=== PATIENT | female | born 1955 | race Caucasian/White ===

== ENCOUNTER 2021-10-03 09:59 | Inpatient (IN) | payer BC, OTHER ==
[2021-10-03] MEDS ORDERED: MORPHINE 4 MG/ML SYR ONE ×2 (10:42→16:06)
[2021-10-03 10:57] LABS: Absolute Lymphocytes (CBC) 1.1 K/uL (0.7-4.9); Hematocrit 31.3 % (36.0-45.0); Lymphocytes % 9.8 % (15.3-44.8); MPV 7.1 fL (7.6-11.3)
[2021-10-03 11:10] LABS: Potassium 3.6 mmol/L (3.5-5.1)
--- NOTE | 2021-10-03 11:30 | RAD REPORT ---
EXAM DESCRIPTION: CT - Head C Spine Cap Thompson Castro - 10/03/2021 11:16 am CLINICAL HISTORY: Trauma, head and neck injury. Chest, abdomen and pelvis pain. fall COMPARISON: No comparisons TECHNIQUE: CT head without contrast. CT cervical spine without contrast with coronal and sagittal reformatted images. CT chest, abdomen and pelvis with coronal and sagittal reformatted images of the spine. All CT scans are performed using dose optimization technique as appropriate and may include automated exposure control or mA/KV adjustment according to patient size. FINDINGS: CT HEAD WITHOUT CONTRAST: No intracranial hemorrhage, hydrocephalus or extra-axial fluid collection. No acute large vascular te rritory infarct. The paranasal sinuses and mastoids are clear. The calvarium is intact. CT CERVICAL SPINE WITHOUT CONTRAST: No fracture or subluxation. Status post C3 through C7 ACDF. No hardware complications. Interbody senthil ts are present. The prevertebral soft tissues are normal in thickness. CT CHEST, ABDOMEN, PELVIS: Thorax: Chest Wall: No abnormal mass Lungs: No acute abnormality. Pleura: No effusions or pneumothorax. [place]/Mediastinum: No lymphadenopathy. Aorta/Pulmonary Arteries: Unremarkable Heart: Normal size. Aortic root calcifications. Abdomen/Pelvis: Liver: Several liver lesions noted which have overall benign imaging features. Biliary: No biliary ductal dilatation. Stomach: No significant focal abnormality. Duodenum: No significant focal abnormality. Pancreas: No significant abnormality. Spleen: No significant abnormality. Adrenal: No suspicious lesions. Kidney/ureter: No hydronephrosis. No renal calculi. Retroperitoneum: No retroperitoneal adenopathy. Vascular: No aneurysm. Bowel: No significant focal abnormality. Peritoneum: No ascites or free air. Bladder: Grossly unremarkable. Reproductive: No adnexal masses. Bones: Grade 2 anterolisthesis of L5 on S1. Compression fractures are present at L1, L2, and L4. Thes e are favored chronic. There is slight bony retropulsion at L1. Comminuted right intertrochanteric hi p fracture. Remote left obturator ring fracture. Other: n/a IMPRESSION: 1. No acute intracranial abnormality. 2. No acute fracture or traumatic malalignment of the cervical spine. 3. Comminuted right intertrochanteric hip fracture. No dislocation. Lumbar compression fractures are favored chronic.
--- NOTE | 2021-10-03 11:49 | RAD REPORT ---
EXAM DESCRIPTION: RAD - Chest Single View - 10/03/2021 11:43 am CLINICAL HISTORY: pre-op COMPARISON: No comparisons FINDINGS: Lines: None. Lungs: No evidence of edema or pneumonia. Pleural: No significant pleural effusions or pneumothorax. Cardiac: The heart size is within normal limits. Bones: No acute fractures. ACDF in the cervical spine. Other: IMPRESSION: No acute cardiopulmonary disease.
--- NOTE | 2021-10-03 11:49 | RAD REPORT ---
EXAM DESCRIPTION: RAD - Pelvis - 10/03/2021 11:43 am CLINICAL HISTORY: fall COMPARISON: Head C Spine Cap W Con dated 10/03/2021 FINDINGS/IMPRESSION: Displaced comminuted right intertrochanteric hip fracture. Superolateral displa cement is noted. No dislocation. Remote left obturator ring fracture. Contrast present within the manuel dder.
--- NOTE | 2021-10-03 11:50 | RAD REPORT ---
EXAM DESCRIPTION: RAD - Hip Right 2 View - 10/03/2021 11:43 am CLINICAL HISTORY: fall COMPARISON: No comparisons FINDINGS/IMPRESSION: Right-sided intertrochanteric hip fracture. No dislocation. Superior and latera l displacement of the distal fragment.
[2021-10-03] MEDS ORDERED: HYDROMORPHONE HCL 1 MG/ML INJ ONE (11:53)
--- NOTE | 2021-10-03 12:19 | ER ---
Nurse's Notes [facility] Name: Amara Sherwood Age: 65 yrs Sex: Female : 1955 Arrival Date: 10/03/2021 Time: 10:08 Bed 4 Private MD: Diagnosis: Displaced intertrochanteric fracture of right femur;Fall on same level, unspecified Presentation: 10/03 10:08 Chief complaint: Patient states: lost balance and fell onto right hip last night. Pt aa5 c/o pain to right hip. Denies head injury, denies LOC. Care prior to arrival: None. Mechanism of Injury: Fall from standing position. Trauma event details: Injury occurred in the [facility], Injury occurred: [facility], pt reports she is on vacation and lives in [place], [place]. Injury occurred: October 02, 2021. 10:08 Acuity: ADRIAN 3 aa5 10:08 Method Of Arrival: EMS: [facility] aa5 10:08 Coronavirus screen: At this time, the client does not indicate any symptoms associated aa5 with coronavirus-19. Ebola Screen: No symptoms or risks identified at this time. Initial Sepsis Screen: Does the patient meet any 2 criteria? No. Patient's initial sepsis screen is negative. Does the patient have a suspected source of infection? No. Patient's initial sepsis screen is negative. Risk Assessment: Do you want to hurt yourself or someone else? Patient reports no desire to harm self or others. Onset of symptoms was September 2021. Trauma Activation: Not Applicable Physician: ED Physician; Name: ; Notified At: ; Arrived At: Physician: General Surgeon; Name: ; Notified At: ; Arrived At: Physician: Radiology; Name: ; Notified At: ; Arrived At: Physician: Respiratory; Name: ; Notified At: ; Arrived At: Physician: Lab; Name: ; Notified At: ; Arrived At: 10:08 per PA aa5 Historical: - Allergies: 10:08 No Known Allergies; aa5 - Home Meds: 10:08 metoprolol succinate 25 mg oral CSpX once daily [Active]; hydrochlorothiazide 25 mg aa5 Oral tab once daily [Active]; fluoxetine 20 mg Oral cap once daily for mood swings [Active]; hydroxyzine HCl 10 mg Oral tab PRN [Active]; Vitamin B12 [Active]; Calcium/Vitamin D3 [Active]; Focus Factor [Active]; Liver Cleanse with milk thistle extract [Active]; - PMHx: 10:08 Hypertensive disorder; Anxiety; aa5 - PSHx: 10:08 cervical disc fusion; aa5 - Immunization history: Last tetanus immunization: unknown. Screenin:40 Abuse screen: Denies threats or abuse. Nutritional screening: No deficits noted. aa5 Tuberculosis screening: No symptoms or risk factors identified. Fall Risk Fall in past 12 months (25 points). IV access (20 points). Total Hudson Fall Scale indicates High Risk Score (45 or more points). Fall prevention measures have been instituted. Side Rails Up X 2 Placed Close to Nursing Station. Primary Survey: 10:08 NO uncontrolled hemorrhage observed. A: The client is awake and alert. The airway is aa5 patent. Breathing/Chest: Spontaneous respiratory effort, equal unlabored respirations, breath sounds clear bilaterally, regular pattern, symmetrical chest rise and fall. Circulation: No external hemorrhage present. Regular and strong central pulse, skin warm/dry/normal color. Disability Client is alert. Exposure/Environment: There is no evidence of uncontrolled external bleeding. A warming method has been applied: A warm blanket has been provided to the patient. 10:20 Reassessment Alertness and Airway: Awake and alert. The airway is patent. Breathing: aa5 Spontaneous respiratory effort, equal unlabored respirations, breath sounds clear bilaterally, regular pattern with symmetrical chest rise and fall. Circulation: No external hemorrhage noted. Regular and strong central pulse, skin warm/dry/normal color. Disability: Alert. Assessment: 10:08 General: Appears uncomfortable, Behavior is calm, cooperative. Pain: Complains of pain aa5 in right hip Pain currently is 8 out of 10 on a pain scale. Quality of pain is described as sharp, shooting, Pain began last night Is continuous, Aggravated by repositioning, Unable to bear weight. Neuro: Level of Consciousness is awake, alert, obeys commands, Oriented to person, place, time, situation. Cardiovascular: Heart tones S1 S2 present Pulses are 3+ in right dorsalis pedis artery Rhythm is regular. Respiratory: Airway is patent Respiratory effort is even, unlabored, Respiratory pattern is regular, symmetrical. GI: No signs and/or symptoms were reported involving the gastrointestinal system. : No signs and/or symptoms were reported regarding the genitourinary system. EENT: No signs and/or symptoms were reported regarding the EENT system. Derm: Skin is pink, warm \T\ dry. Musculoskeletal: Reports pain in right hip slight shortening of right leg noted, right leg slightly rotated. 10:39 Reassessment: awaiting radiology. aa5 10:45 Reassessment: Pt to CT via stretcher . aa5 11:35 Reassessment: Patient is alert, oriented x 3, equal unlabored respirations, skin aa5 warm/dry/pink. Pain: Pain currently is 7 out of 10 on a pain scale. 11:35 Reassessment: Pt requesting pain medication, PA was notified. . aa5 12:26 Reassessment: Pt actively vomiting, PA was notified and Zofran ordered. . aa5 13:35 Reassessment: Patient is alert, oriented x 3, equal unlabored respirations, skin aa5 warm/dry/pink. Patient states feeling better. Pain: Pain currently is 5 out of 10 on a pain scale. 14:35 Reassessment: Pt sleeping, O2 noted to be 88% RA when pt is asleep, when awake 97% RA aa5 O2 sat noted. Pt now awake and alert, O2 via NC at 3 L. . 14:35 Respiratory: Airway is patent Respiratory effort is even, relaxed, Respiratory pattern aa5 is regular, symmetrical. Derm: Skin is pink, warm \T\ dry. 15:20 Reassessment: Pt sleeping, relaxed respirations, skin is pink/warm/dry. Pt easy to aa5 awaken to verbal stimuli, rates pain 5/10 on a pain scale. . 16:10 Reassessment: Patient is alert, oriented x 3, equal unlabored respirations, skin aa5 warm/dry/pink. Reassessment: Pt requesting pain medication, PA was notified. . Pain: Pain currently is 7 out of 10 on a pain scale. 16:20 Reassessment: Patient is alert, oriented x 3, equal unlabored respirations, skin aa5 warm/dry/pink. Patient states feeling better. 16:20 Pain: Pain currently is 4 out of 10 on a pain scale. aa5 Vital Signs: 10:08 BP 140 / 93; Pulse 76; Resp 18 S; Temp 98.5(O); Pulse Ox 100% on R/A; Weight 64.41 kg aa5 (R); Height 5 ft. 2 in. (157.48 cm) (R); 10:35 BP 146 / 72; Pulse 71; Resp 18 S; Pulse Ox 96% on R/A; aa5 11:35 BP 155 / 100; Pulse 76; Resp 16 S; Pulse Ox 95% on R/A; aa5 12:35 BP 151 / 61; Pulse 76; Resp 18 S; Pulse Ox 97% on R/A; aa5 13:35 BP 149 / 62; Pulse 74; Resp 14 S; Temp 98.0(TE); Pulse Ox 96% on R/A; aa5 14:35 BP 122 / 60; Pulse 72; Resp 14 S; Pulse Ox 88% on R/A; aa5 14:36 Pulse Ox 98% on 3 lpm NC; aa5 15:20 BP 114 / 49; Pulse 69; Resp 14 S; Pulse Ox 95% on 2 lpm NC; aa5 16:20 BP 106 / 55; Pulse 68; Resp 14 S; Temp 98.3(TE); Pulse Ox 97% on 2 lpm NC; Pain 4/10; aa5 10:08 Body Mass Index 25.97 (64.41 kg, 157.48 cm) aa5 [place] Coma Score: 10:08 Eye Response: spontaneous(4). Verbal Response: oriented(5). Motor Response: obeys aa5 commands(6). Total: 15. 10:35 Eye Response: spontaneous(4). Verbal Response: oriented(5). Motor Response: obeys aa5 commands(6). Total: 15. 11:35 Eye Response: spontaneous(4). Verbal Response: oriented(5). Motor Response: obeys aa5 commands(6). Total: 15. 12:35 Eye Response: spontaneous(4). Verbal Response: oriented(5). Motor Response: obeys aa5 commands(6). Total: 15. 13:35 Eye Response: spontaneous(4). Verbal Response: oriented(5). Motor Response: obeys aa5 commands(6). Total: 15. 14:35 Eye Response: spontaneous(4). Verbal Response: oriented(5). Motor Response: obeys aa5 commands(6). Total: 15. 15:20 Eye Response: spontaneous(4). Verbal Response: oriented(5). Motor Response: obeys aa5 commands(6). Total: 15. 16:20 Eye Response: spontaneous(4). Verbal Response: oriented(5). Motor Response: obeys aa5 commands(6). Total: 15. Trauma Score (Adult): 10:08 Eye Response: spontaneous(1); Verbal Response: oriented(1); Motor Response: obeys aa5 commands(2); Systolic BP: > 89 mm Hg(4); Respiratory Rate: 10 to 29 per min(4); López Score: 15; Trauma Score: 12 10:35 Eye Response: spontaneous(1); Verbal Response: oriented(1); Motor Response: obeys aa5 commands(2); Systolic BP: > 89 mm Hg(4); Respiratory Rate: 10 to 29 per min(4); [place] Score: 15; Trauma Score: 12 11:35 Eye Response: spontaneous(1); Verbal Response: oriented(1); Motor Response: obeys aa5 commands(2); Systolic BP: > 89 mm Hg(4); Respiratory Rate: 10 to 29 per min(4); [place] Score: 15; Trauma Score: 12 12:35 Eye Response: spontaneous(1); Verbal Response: oriented(1); Motor Response: obeys aa5 commands(2); Systolic BP: > 89 mm Hg(4); Respiratory Rate: 10 to 29 per min(4); [place] Score: 15; Trauma Score: 12 13:35 Eye Response: spontaneous(1); Verbal Response: oriented(1); Motor Response: obeys aa5 commands(2); Systolic BP: > 89 mm Hg(4); Respiratory Rate: 10 to 29 per min(4); [place] Score: 15; Trauma Score: 12 14:35 Eye Response: spontaneous(1); Verbal Response: oriented(1); Motor Response: obeys aa5 commands(2); Systolic BP: > 89 mm Hg(4); Respiratory Rate: 10 to 29 per min(4); López Score: 15; Trauma Score: 12 15:20 Eye Response: spontaneous(1); Verbal Response: oriented(1); Motor Response: obeys aa5 commands(2); Systolic BP: > 89 mm Hg(4); Respiratory Rate: 10 to 29 per min(4); López Score: 15; Trauma Score: 12 16:20 Eye Response: spontaneous(1); Verbal Response: oriented(1); Motor Response: obeys aa5 commands(2); Systolic BP: > 89 mm Hg(4); Respiratory Rate: 10 to 29 per min(4); López Score: 15; Trauma Score: 12 ED Course: 10:08 Patient arrived in ED. aa5 10:08 Arm band placed on. aa5 10:08 Patient has correct armband on for positive identification. Bed in low position. Call aa5 light in reach. Side rails up X2. 10:08 Patient maintains SpO2 saturation greater than 95% on room air. Thermoregulation: warm aa5 blanket given to patient. 10:09 Sunni Casas MD is Attending Physician. sp3 10:10 Tyler Barahona PA is PHCP. cp 10:12 Triage completed. aa5 10:13 Meka Das, DENISE is Primary Nurse. aa5 10:33 Patient has correct armband on for positive identification. Bed in low position. Call aa5 light in reach. Adult w/ patient. blood band placed on right wrist. 10:34 Inserted saline lock: 20 gauge in right antecubital area, using aseptic technique. kc6 Blood collected. 10:35 Basic Metabolic Panel Sent. kc6 10:35 CBC with Diff Sent. kc6 10:35 Type And Screen Sent. kc6 11:18 CT Traumagram (Head C Spine CAP W Con) In Process Unspecified. EDMS 11:44 XRAY Chest (1 view) In Process Unspecified. EDMS 11:45 XRAY Pelvis In Process Unspecified. EDMS 11:45 XRAY Hip RIGHT 2 view In Process Unspecified. EDMS 12:17 Caleb Thurston is Hospitalizing Provider. cp 12:30 Smith cath inserted, using sterile technique, 16 Fr., by ED staff, balloon inflated, to aa5 gravity drainage, returned clear yellow urine. Patient tolerated well. 13:59 No provider procedures requiring assistance completed. aa5 16:45 Patient admitted, IV remains in place. aa5 Administered Medications: 10:35 Drug: morphine 4 mg Route: IVP; Infused Over: 4 mins; Site: right antecubital; aa5 10:40 Follow up: Response: No adverse reaction aa5 11:47 Drug: Dilaudid (HYDROmorphone) 1 mg Route: IVP; Site: right antecubital; aa5 11:52 Follow up: Response: No adverse reaction aa5 12:26 Drug: Zofran (Ondansetron) 4 mg Route: IVP; Site: right antecubital; aa5 12:30 Follow up: Response: No adverse reaction aa5 15:20 Drug: Magnesium Sulfate 1 grams Route: IVPB; Infused Over: 1 hrs; Site: right aa5 antecubital; 16:20 Follow up: Response: No adverse reaction; IV Status: Completed infusion aa5 16:13 Drug: morphine 4 mg Route: IVP; Infused Over: 4 mins; Site: right antecubital; aa5 16:20 Follow up: Response: No adverse reaction aa5 Medication: 13:59 VIS not applicable for this client. aa5 Output: 16:45 Urine: 700ml (Smith); Total: 700ml. aa5 Outcome: 12:18 Decision to Hospitalize by Provider. cp 12:18 Patient's length of stay was not longer than 2 hours. aa5 16:45 Admitted to Med/surg accompanied by tech, family with patient, via stretcher, with aa5 oxygen, with chart, Report called to DENISE Wilson 16:45 Condition: stable 16:45 Instructed on the need for admit, Demonstrated understanding of instructions. 17:22 Patient left the ED. iw Signatures: Dispatcher [employer] Renetta Mendez RN RN iw Meka Das RN RN aa5 Tyler Barahona PA PA cp Sunni Casas MD MD sp3 Nancy Yang kc6 Corrections: (The following items were deleted from the chart) 10:54 10:33 Patient has correct armband on for positive identification. Bed in low position. aa5 Call light in reach. Adult w/ patient. blood band placed on right wrist. kc6 10:55 10:50 Abuse screen: Denies threats or abuse. aa5 aa5 10:55 10:50 Nutritional screening: No deficits noted. aa5 aa5 10:55 10:50 Tuberculosis screening: No symptoms or risk factors identified. aa5 aa5 10:55 10:50 Fall Risk Fall in past 12 months (25 points). IV access (20 points). Total Hudson aa5 Fall Scale indicates High Risk Score (45 or more points). Fall prevention measures have been instituted. Side Rails Up X 2 Placed Close to Nursing Station 5 10:56 10:39 Reassessment: awaiting x-rays. 5 aa5 15:34 10:08 Derm: Skin is pink, warm \T\ dry. 5 aa 15:34 10:08 Musculoskeletal: Reports pain in right hip slight shortening of right leg noted [place] [id number] 15:35 10:08 Derm: Skin is pink, warm \T\ dry. Rash noted that is red, raised, on back and aa5 buttocks diffuse, rash is blanchable aa5
--- NOTE | 2021-10-03 12:19 | EDPHYS ---
Physician Documentation [facility] Name: Amara Sherwood Age: 65 yrs Sex: Female : 1955 Arrival Date: 10/03/2021 Time: 10:08 Bed 4 Private MD: ED Physician Sunni Casas HPI: 10/03 10:20 This 65 yrs old Female presents to ER via EMS with complaints of Hip Injury. cp 10:20 The patient or guardian reports decreased range of motion, deformity, an injury, pain. cp that occurred at a relative's home, sustained from a fall, from a standing position, the right lower extremity is shortened, The patient is not able to ambulate. Patient is not able to bear weight. The complaints affect the right hip. Onset: The symptoms/episode began/occurred yesterday. Associated signs and symptoms: Loss of consciousness: the patient experienced no loss of consciousness, Pertinent negatives: abdominal pain, chest pain, diarrhea, dizziness, fever, shortness of breath, vomiting, weakness. Historical: - Allergies: 10:08 No Known Allergies; aa5 - Home Meds: 10:08 metoprolol succinate 25 mg oral CSpX once daily [Active]; hydrochlorothiazide 25 mg aa5 Oral tab once daily [Active]; fluoxetine 20 mg Oral cap once daily for mood swings [Active]; hydroxyzine HCl 10 mg Oral tab PRN [Active]; Vitamin B12 [Active]; Calcium/Vitamin D3 [Active]; Focus Factor [Active]; Liver Cleanse with milk thistle extract [Active]; - PMHx: 10:08 Hypertensive disorder; Anxiety; aa5 - PSHx: 10:08 cervical disc fusion; aa5 - Immunization history: Last tetanus immunization: unknown. ROS: 10:25 Constitutional: Negative for body aches, chills, fever, poor PO intake. cp 10:25 Cardiovascular: Negative for chest pain, edema, palpitations. cp 10:25 Respiratory: Negative for cough, shortness of breath, wheezing. 10:25 Abdomen/GI: Negative for abdominal pain, nausea, vomiting, and diarrhea. 10:25 Eyes: Negative for injury, pain, redness, and discharge. cp 10:25 ENT: Negative for drainage from ear(s), ear pain, sore throat, difficulty swallowing, cp difficulty handling secretions. 10:25 Neck: Negative for pain with movement, pain at rest, stiffness. 10:25 Back: Positive for pain at rest, pain with movement, of the low back. 10:25 MS/extremity: Positive for injury or acute deformity, decreased range of motion, pain, tenderness, of the right hip. 10:25 Neuro: Negative for altered mental status, dizziness, headache, weakness. 10:25 All other systems are negative. Exam: 10:30 Constitutional: The patient appears in no acute distress, alert, awake, non-toxic, well cp developed, well nourished, in obvious pain, uncomfortable. 10:30 Head/Face: Normocephalic, atraumatic. cp 10:30 Eyes: Periorbital structures: appear normal, Pupils: equal, round, and reactive to light and accomodation, Extraocular movements: intact throughout, Conjunctiva: normal, no exudate, no injection, Sclera: no appreciated abnormality, Lids and lashes: appear normal, bilaterally. 10:30 ENT: External ear(s): are unremarkable, Nose: is normal, Mouth: Lips: moist, Oral mucosa: pink and intact, moist, Posterior pharynx: Airway: no evidence of obstruction, patent. 10:30 Neck: ROM/movement: is normal, is supple, without pain, no range of motions limitations. 10:30 Chest/axilla: Inspection: normal, Palpation: is normal, no crepitus, no tenderness. 10:30 Cardiovascular: Rate: normal, Rhythm: regular, Edema: is not appreciated, JVD: is not appreciated. 10:30 Respiratory: the patient does not display signs of respiratory distress, Respirations: normal, no use of accessory muscles, no retractions, labored breathing, is not present, Breath sounds: are clear throughout, no decreased breath sounds, no stridor, no wheezing. 10:30 Abdomen/GI: Inspection: abdomen appears normal, Bowel sounds: active, all quadrants, Palpation: soft, in all quadrants, nontender, in all quadrants, rebound tenderness, is not appreciated, involuntary guarding, is not appreciated. 10:30 Back: pain, that is moderate, of the lumbar area and right low back. 10:30 Musculoskeletal/extremity: Extremities: noted in the right hip: decreased ROM, deformity, pain, tenderness, ROM: limited passive range of motion, in the right hip, Pulses: noted to be 2+ in the right dorsalis pedis artery, the right hip Severe pain noted. 10:30 Neuro: Orientation: to person, place \T\ time. Mentation: is normal. 11:57 ECG was reviewed by the Attending Physician. cp Vital Signs: 10:08 BP 140 / 93; Pulse 76; Resp 18 S; Temp 98.5(O); Pulse Ox 100% on R/A; Weight 64.41 kg aa5 (R); Height 5 ft. 2 in. (157.48 cm) (R); 10:35 BP 146 / 72; Pulse 71; Resp 18 S; Pulse Ox 96% on R/A; aa5 11:35 BP 155 / 100; Pulse 76; Resp 16 S; Pulse Ox 95% on R/A; aa5 12:35 BP 151 / 61; Pulse 76; Resp 18 S; Pulse Ox 97% on R/A; aa5 13:35 BP 149 / 62; Pulse 74; Resp 14 S; Temp 98.0(TE); Pulse Ox 96% on R/A; aa5 14:35 BP 122 / 60; Pulse 72; Resp 14 S; Pulse Ox 88% on R/A; aa5 14:36 Pulse Ox 98% on 3 lpm NC; aa5 15:20 BP 114 / 49; Pulse 69; Resp 14 S; Pulse Ox 95% on 2 lpm NC; aa5 16:20 BP 106 / 55; Pulse 68; Resp 14 S; Temp 98.3(TE); Pulse Ox 97% on 2 lpm NC; Pain 4/10; aa5 10:08 Body Mass Index 25.97 (64.41 kg, 157.48 cm) aa5 [place] Coma Score: 10:08 Eye Response: spontaneous(4). Verbal Response: oriented(5). Motor Response: obeys aa5 commands(6). Total: 15. 10:35 Eye Response: spontaneous(4). Verbal Response: oriented(5). Motor Response: obeys aa5 commands(6). Total: 15. 11:35 Eye Response: spontaneous(4). Verbal Response: oriented(5). Motor Response: obeys aa5 commands(6). Total: 15. 12:35 Eye Response: spontaneous(4). Verbal Response: oriented(5). Motor Response: obeys aa5 commands(6). Total: 15. 13:35 Eye Response: spontaneous(4). Verbal Response: oriented(5). Motor Response: obeys aa5 commands(6). Total: 15. 14:35 Eye Response: spontaneous(4). Verbal Response: oriented(5). Motor Response: obeys aa5 commands(6). Total: 15. 15:20 Eye Response: spontaneous(4). Verbal Response: oriented(5). Motor Response: obeys aa5 commands(6). Total: 15. 16:20 Eye Response: spontaneous(4). Verbal Response: oriented(5). Motor Response: obeys aa5 commands(6). Total: 15. Trauma Score (Adult): 10:08 Eye Response: spontaneous(1); Verbal Response: oriented(1); Motor Response: obeys aa5 commands(2); Systolic BP: > 89 mm Hg(4); Respiratory Rate: 10 to 29 per min(4); [place] Score: 15; Trauma Score: 12 10:35 Eye Response: spontaneous(1); Verbal Response: oriented(1); Motor Response: obeys aa5 commands(2); Systolic BP: > 89 mm Hg(4); Respiratory Rate: 10 to 29 per min(4); [place]ópez Score: 15; Trauma Score: 12 11:35 Eye Response: spontaneous(1); Verbal Response: oriented(1); Motor Response: obeys aa5 commands(2); Systolic BP: > 89 mm Hg(4); Respiratory Rate: 10 to 29 per min(4); López Score: 15; Trauma Score: 12 12:35 Eye Response: spontaneous(1); Verbal Response: oriented(1); Motor Response: obeys aa5 commands(2); Systolic BP: > 89 mm Hg(4); Respiratory Rate: 10 to 29 per min(4); [place] Score: 15; Trauma Score: 12 13:35 Eye Response: spontaneous(1); Verbal Response: oriented(1); Motor Response: obeys aa5 commands(2); Systolic BP: > 89 mm Hg(4); Respiratory Rate: 10 to 29 per min(4); López Score: 15; Trauma Score: 12 14:35 Eye Response: spontaneous(1); Verbal Response: oriented(1); Motor Response: obeys aa5 commands(2); Systolic BP: > 89 mm Hg(4); Respiratory Rate: 10 to 29 per min(4); López Score: 15; Trauma Score: 12 15:20 Eye Response: spontaneous(1); Verbal Response: oriented(1); Motor Response: obeys aa5 commands(2); Systolic BP: > 89 mm Hg(4); Respiratory Rate: 10 to 29 per min(4); López Score: 15; Trauma Score: 12 16:20 Eye Response: spontaneous(1); Verbal Response: oriented(1); Motor Response: obeys aa5 commands(2); Systolic BP: > 89 mm Hg(4); Respiratory Rate: 10 to 29 per min(4); López Score: 15; Trauma Score: 12 MDM: 10:12 Patient medically screened. 12:15 Physician consultation: Jorge Alberto Muñiz MD was called at 12:10, was contacted at 12:10, regarding admission, to the telemetry unit. patient's condition, would like admission per Dr. Caleb Thurston. 12:15 Differential diagnosis: hip fracture, intertrochanteric fracture, femoral neck cp fracture, femoral shaft fracture, multiple trauma. 14:30 Data reviewed: vital signs, nurses notes, lab test result(s), EKG, radiologic studies, cp CT scan, plain films. 14:30 Test interpretation: by ED physician or midlevel provider: ECG, plain radiologic cp studies. 10/03 10:14 Order name: Basic Metabolic Panel; Complete Time: 11:40 cp 10/03 10:14 Order name: CBC with Diff; Complete Time: 11:40 cp 10/03 14:24 Interpretation: Normal except: WBC 11.0; RBC 3.40; HGB 11.0; HCT 31.3; MPV 7.1; ALEIDA% cp 82.4; LYM% 9.8; NEUT A 9.1. 10/03 10:14 Order name: Type And Screen; Complete Time: 11:40 cp 10/03 11:40 Order name: LFT's; Complete Time: 14:23 cp 10/03 11:40 Order name: Magnesium; Complete Time: 14:23 cp 10/03 11:40 Order name: NT PRO-BNP; Complete Time: 14:23 cp 10/03 10:13 Order name: XRAY Pelvis; Complete Time: 14:23 cp 10/03 11:40 Order name: PT-INR; Complete Time: 14:23 cp 10/03 11:40 Order name: Troponin HS; Complete Time: 14:23 cp 10/03 12:44 Order name: ABO/RH no charge; Complete Time: 14:23 EDMS 10/03 12:59 Order name: SARS RAPID; Complete Time: 14:23 cp 10/03 14:23 Order name: Urine Microscopic Only cp 10/03 14:44 Order name: Urine Dipstick-Ancillary EDMS 10/03 15:25 Order name: Urine Microscopic Only EDMS 10/03 10:13 Order name: XRAY Hip RIGHT 2 view; Complete Time: 14:23 cp 10/03 10:13 Order name: IV; Complete Time: 10:35 cp 10/03 10:14 Order name: CT Traumagram (Head C Spine CAP W Con); Complete Time: 11:40 cp 10/03 10:14 Order name: Labs collected and sent; Complete Time: 10:39 cp 10/03 11:40 Order name: XRAY Chest (1 view); Complete Time: 14:23 cp 10/03 11:40 Order name: EKG; Complete Time: 11:42 cp 10/03 11:40 Order name: Cardiac monitoring; Complete Time: 11:48 cp 10/03 11:40 Order name: EKG - Nurse/Tech; Complete Time: 11:48 cp 10/03 11:40 Order name: O2 Per Protocol; Complete Time: 11:49 cp 10/03 11:40 Order name: O2 Sat Monitoring; Complete Time: 11:49 cp 10/03 12:03 Order name: NPO; Complete Time: 12:12 cp 10/03 12:27 Order name: Smith; Complete Time: 13:09 aa5 10/03 14:23 Order name: Urine Dipstick-Ancillary (obtain specimen); Complete Time: 15:20 cp EC:57 Rate is 70 beats/min. Rhythm is regular. PA interval is normal. QRS interval is normal. cp QT interval is normal. T waves are Inverted in leads aVR, V2. Interpreted by me. Reviewed by me. Administered Medications: 10:35 Drug: morphine 4 mg Route: IVP; Infused Over: 4 mins; Site: right antecubital; aa5 10:40 Follow up: Response: No adverse reaction aa5 11:47 Drug: Dilaudid (HYDROmorphone) 1 mg Route: IVP; Site: right antecubital; aa5 11:52 Follow up: Response: No adverse reaction aa5 12:26 Drug: Zofran (Ondansetron) 4 mg Route: IVP; Site: right antecubital; aa5 12:30 Follow up: Response: No adverse reaction aa5 15:20 Drug: Magnesium Sulfate 1 grams Route: IVPB; Infused Over: 1 hrs; Site: right aa5 antecubital; 16:20 Follow up: Response: No adverse reaction; IV Status: Completed infusion aa5 16:13 Drug: morphine 4 mg Route: IVP; Infused Over: 4 mins; Site: right antecubital; aa5 16:20 Follow up: Response: No adverse reaction aa5 Disposition Summary: 10/03/21 12:18 Hospitalization Ordered Hospitalization Status: Inpatient Admission cp Provider: Caleb Thurston cp Location: Telemetry/MedSurg (Inpatient) cp Condition: Stable cp Problem: new cp Symptoms: have improved cp Bed/Room Type: Standard cp Room Assignment: 205(10/03/21 15:49) dw Diagnosis - Displaced intertrochanteric fracture of right femur cp - Fall on same level, unspecified cp Forms: - Medication Reconciliation Form cp - SBAR form cp Signatures: Dispatcher [employer] Sandy De Leon RN RN dw Calderon, Audri, RN RN aa5 Tyler Barahona PA PA cp Corrections: (The following items were deleted from the chart) 15:49 12:18 cp dw
[2021-10-03] MEDS ORDERED: ONDANSETRON 4 MG/2 ML VIAL ONE (12:26)
[2021-10-03 12:36] LABS: Protime INR 1.17
[2021-10-03 12:50] LABS: Albumin 3.9 g/dL (3.4-5.0); Bilirubin Direct 0.2 mg/dL (0-0.2); Bilirubin Total 0.9 mg/dL (0.2-1.0); Magnesium 1.5 mg/dL (1.8-2.4); Protein, Total 6.8 g/dL (6.4-8.2); Troponin High Sensitivity 7.1 pg/mL (<58.9)
--- NOTE | 2021-10-03 13:57 | P.HP ---
Certification for Inpatient Patient admitted to: Inpatient With expected LOS: >2 Midnights Practitioner: I am a practitioner with admitting privileges, knowledge of patient current condition, hospital course, and medical plan of care. Services: Services provided to patient in accordance with Admission requirements found in Title 42 Section 412.3 of the Code of Federal Regulations Patient History Date of Service: 10/03/21 Reason for admission: Fall History of Present Illness: 65-year-old man with a history of hypertension, visiting here from [place] had a mechanical fall at home and developed pain in the right hip. Imaging done in the emergency department demonstrated right femoral intertrochanteric fracture. Orthopedic surgeon Dr. Mayer contacted who plans to perform ORIF. Patient is admitted to the hospitalist service. She currently has no complaint. She denies any palpitation or shortness of breath or lightheadedness or confusion prior to the fall. - Past Medical/Surgical History -: Hypertension -: Bilateral knee surgeries - Family History Mother -: Cancer Father -: Heart disease - Social History Smoking Status: Never smoker Alcohol use: Yes CD- Drugs: No Place of Residence: Home Review of Systems Other: Except as documented, all other systems reviewed and negative. Physical Examination - Physical Exam General: Alert, In no apparent distress, Oriented x3 HEENT: Mucous membr. moist/pink Neck: Supple, JVD not distended Respiratory: Clear to auscultation bilaterally, Normal air movement Cardiovascular: No edema, Regular rate/rhythm, Normal S1 S2 Capillary refill: <2 Seconds Gastrointestinal: Normal bowel sounds, Soft and benign, Non-distended, No tenderness Musculoskeletal: No swelling, No erythema, Tenderness (Right hip) Integumentary: No rashes, No cyanosis Neurological: Normal speech, Normal strength at 5/5 x4 extr, Cranial nerves 3-12 intact Lymphatics: No axilla or inguinal lymphadenopathy - Studies Laboratory Data (last 24 hrs) 10/03/21 12:15: PT 12.9 H, INR 1.17 10/03/21 12:15: Magnesium 1.5 L, Total Bilirubin 0.9, AST 33, ALT 42, Alkaline Phosphatase 49 10/03/21 10:26: WBC 11.0 H, Hgb 11.0 L, Hct 31.3 L, Plt Count 219 10/03/21 10:26: Sodium 129 L, Potassium 3.6, BUN 10, Creatinine 0.62, Glucose 125 H Assessment and Plan - Problems (Diagnosis) (1) Intertrochanteric fracture of right femur Current Visit: Yes Status: Acute (2) Essential hypertension Current Visit: Yes Status: Acute (3) Hyponatremia Current Visit: Yes Status: Acute - Plan Admit patient to the medical floor. Orthopedic surgery-Dr. Mayer consulted Pain management as needed. N.p.o. for possible surgery today. SCD for DVT prophylaxis-preop. Continue home medications for hypertension. IV normal saline for hyponatremia. Monitor BMP - Advance Directives Does patient have a Living Will: No Does patient have a Durable POA for Healthcare: No
[2021-10-03] MEDS ORDERED: ACETAMINOPHEN 500 MG TAB PO PRN (14:04)
[2021-10-03] MEDS ORDERED: HYDROCODONE/APAP 5/325 MG TAB PO PRN (14:04)
[2021-10-03] MEDS ORDERED: PROMETHAZINE 25 MG TABLET PO PRN (14:04)
[2021-10-03] MEDS ORDERED: ONDANSETRON 4 MG/2 ML VIAL IV PRN (14:04)
[2021-10-03 14:16] LABS: SARS-CoV-2 Antigen Rapid Res Negative (Negative)
[2021-10-03 14:44] LABS: Urine Blood Trace-intact (Negative); Urine Glucose Negative (Negative); Urine Protein Negative (Negative); Urine Specific Gravity 1.015 (1.005-1.030)
[2021-10-03] MEDS ORDERED: MAGNESIUM SULFATE 1 gm IVPB 1 GM/100 ML BAG IV ONE (15:05)
[2021-10-03 15:25] LABS: Urine Bacteria <20 /HPF (<20); Urine RBC <5 /HPF (None Seen)
[2021-10-03] MEDS ORDERED: D5 0.9 NS 1,000 ML IV ONE (16:06)
[2021-10-03] MEDS: D5 0.9 NS 1,000 ML IV SCH ×2 (16:10→19:02)
[2021-10-03] MEDS ORDERED: D5W 1,000 ML IV ONE (16:14)
--- NOTE | 2021-10-03 18:05 | P.CNS ---
Date of Consult: 10/03/21 Reason for Consult: right hip fracture Chief Complaint: Fall History of Present Illness: [place], she has pain localized to her right hip, curently npo, she is non anbulatory and guards any right hip movement. admitted from ED now5:40 pm Allergies No Known Allergies Allergy (Verified 10/03/21 17:59) Home medications list reviewed: Yes - Past Medical/Surgical History -: Hypertension -: Bilateral knee surgeries - Family History Mother Medical History: Cancer Father Medical History: Heart disease - Social History Alcohol use: Yes CD- Drugs: No Place of Residence: Home Review of Systems 10-point ROS is otherwise unremarkable Physical Examination General: In no apparent distress, Oriented x3 HEENT: Normocephalic Neck: Supple Respiratory: Normal air movement Cardiovascular: No edema Musculoskeletal: Other (pain localized to right hip intertrochanteric region, right foot turned out) Laboratory Data (last 24 hrs) 10/03/21 12:15: PT 12.9 H, INR 1.17 10/03/21 12:15: Magnesium 1.5 L, Total Bilirubin 0.9, AST 33, ALT 42, Alkaline Phosphatase 49 10/03/21 10:26: WBC 11.0 H, Hgb 11.0 L, Hct 31.3 L, Plt Count 219 10/03/21 10:26: Sodium 129 L, Potassium 3.6, BUN 10, Creatinine 0.62, Glucose 125 H - Problems (1) Intertrochanteric fracture of right femur Current Visit: Yes Status: Acute Qualifiers: Encounter type: initial encounter Fracture type: closed Fracture alignment: displaced Qualified Code(s): S72.141A - Displaced intertrochanteric fracture of right femur, initial encounter for closed fracture Conclusions/Impression: she has a comminuted intertrochanteric fracture of her right femur, she will be scheduled for a right hip IM rodding at 5:00pm tomorrow if she is saf and cleared. npo after midnight. Informed consent obtained.
[2021-10-03] MEDS: MORPHINE 2 MG/ML SYR IV PRN ×2 (18:47→22:37)
[2021-10-03 19:54] VITALS: BMI 25.9
[2021-10-04] MEDS: D5 0.9 NS 1,000 ML IV SCH ×2 (05:09→15:00)
[2021-10-04] MEDS: MORPHINE 2 MG/ML SYR IV PRN ×3 (05:45→21:48)
[2021-10-04 06:45] LABS: Absolute Lymphocytes (CBC) 0.9 K/uL (0.7-4.9); Hematocrit 25.5 % (36.0-45.0); MPV 6.8 fL (7.6-11.3); RBC Red Blood Cell Count 2.77 M/uL (3.86-4.86)
[2021-10-04 06:51] LABS: Protime INR 1.17
[2021-10-04 07:00] LABS: Magnesium 1.9 mg/dL (1.8-2.4); Phosphorus 2.8 mg/dL (2.5-4.9); Potassium 3.3 mmol/L (3.5-5.1)
[2021-10-04] MEDS ORDERED: PNEUMOCOCCAL VACCINE 0.5 ML IMVAC ONE (08:00)
[2021-10-04] MEDS ORDERED: KCL 20 MEQ/100 mL IVPB 20 MEQ/100 ML BAG IV SCH (08:00)
--- NOTE | 2021-10-04 13:38 | P.PN ---
Subjective Date of Service: 10/04/21 Chief Complaint: Fall She has no new complaint. She is n.p.o. for surgery today. Physical Examination - Vital Signs Temperature: 97.9 F Blood Pressure: 103/52 Pulse: 60 Respirations: 16 Pulse Ox (%): 92 Assessment And Plan - Current Problems (Diagnosis) (1) Intertrochanteric fracture of right femur Current Visit: Yes Status: Acute Qualifiers: Encounter type: initial encounter Fracture type: closed Fracture alignment: displaced Qualified Code(s): S72.141A - Displaced intertrochanteric fracture of right femur, initial encounter for closed fracture (2) Essential hypertension Current Visit: Yes Status: Acute (3) Hyponatremia Current Visit: Yes Status: Acute - Plan Physical Exam General: Alert, In no apparent distress, Oriented x3 HEENT: Mucous membr. moist/pink Neck: Supple, JVD not distended Respiratory: Clear to auscultation bilaterally, Normal air movement Cardiovascular: No edema, Regular rate/rhythm, Normal S1 S2 Gastrointestinal: Normal bowel sounds, Soft and benign, Non-distended, No tenderness Musculoskeletal: No swelling, No erythema. Integumentary: No rashes, No cyanosis Neurological: Normal speech, Normal strength at 5/5 x4 extr, Cranial nerves 3-12 intact Plan Patient seen by orthopedic surgery. She is planned for surgery today. Pain management as needed. SCD for DVT prophylaxis-preop. Continue home medications for hypertension. Hyponatremia resolved. Continue IV hydration.
--- NOTE | 2021-10-04 14:34 | EKG ---
Test Date: 2021-10-03 Test Time: 11:50:52 International Organizer: MARIZA MEASUREMENT RESULTS: Intervals: Rate: 70 VT: 162 QRSD: 86 QT: 444 QTc: 479 [place]: P: 67 VT: 162 QRS: 50 T: 38 INTERPRETIVE STATEMENTS: Normal sinus rhythm Normal ECG No previous ECG available for comparison Electronically Signed On 10-04-21 14:31:48 CDT by Jamarcus Matthew
[2021-10-04] MEDS ORDERED: Ringers Lactate 1,000 ML IV ONE (16:28)
[2021-10-04] MEDS ORDERED: propofoL 200 MG/20 ML VIAL IV ONE (16:30)
[2021-10-04] MEDS ORDERED: LIDOCAINE 1% MPF 2 ML AMPULE ONE ×2 (16:30)
[2021-10-04] MEDS ORDERED: FENTANYL CITR 100 MCG/2 ML ONE ×2 (16:31→18:03)
[2021-10-04] MEDS ORDERED: ONDANSETRON 4 MG/2 ML VIAL ONE (16:33)
[2021-10-04] MEDS ORDERED: KETOROLAC 30 MG/ML INJ ONE (16:33)
[2021-10-04] MEDS ORDERED: dexAMETHasone 10 MG/ML VIAL ONE (16:33)
[2021-10-04] MEDS ORDERED: CEFAZOLIN SODIUM 1 GM/VIAL ONE (16:47)
[2021-10-04] MEDS ORDERED: TRANEXAMIC ACID 1,000 MG/10 ML VIAL IV ONE (17:18)
[2021-10-04] MEDS ORDERED: Phenylephrine HCl 10 MG/ML 1 ML VIAL ONE (17:32)
[2021-10-04] MEDS ORDERED: GLYCOPYRROLATE 0.2 MG/ML SYR ONE (17:35)
[2021-10-04] MEDS ORDERED: MEPERIDINE HCL 25 MG/ML SYR ONE (18:49)
[2021-10-04] MEDS ORDERED: ONDANSETRON 4 MG/2 ML VIAL IV PRN (18:49)
[2021-10-04] MEDS ORDERED: HYDROMORPHONE HCL 1 MG/ML INJ ONE (19:04)
--- NOTE | 2021-10-04 19:10 | RAD REPORT ---
EXAM DESCRIPTION: RAD - Pelvis - 10/04/2021 7:04 pm CLINICAL HISTORY: s/p IM rodding R hip Right hip pain COMPARISON: Pelvis dated 10/03/2021 FINDINGS: Hardware is in place in the proximal right femur. No unexpected postoperative finding.
[2021-10-04] MEDS: NACHLORIDE 0.45% 1,000 ML IV SCH (21:49)
[2021-10-05] MEDS: CEFAZOLIN 1 GM in NA CHLORIDE 0.9% 50 ML IVPB SCH ×2 (00:39→10:22)
[2021-10-05] MEDS: ASPIRIN 325 MG TAB PO SCH ×3 (01:19→20:47)
[2021-10-05 04:21] LABS: Absolute Lymphocytes (CBC) 0.4 K/uL (0.7-4.9); Hematocrit 23.1 % (36.0-45.0); Lymphocytes % 5.4 % (15.3-44.8); MCV 94.3 fL (80-100); MPV 7.3 fL (7.6-11.3); RBC Red Blood Cell Count 2.45 M/uL (3.86-4.86)
[2021-10-05 04:42] LABS: Potassium 3.7 mmol/L (3.5-5.1)
--- NOTE | 2021-10-05 06:30 | OP ---
Surgeon: Jorge Alberto Mayer MD Director Of Pupil Personnel Program: clerical dentist assistant, [place]. Preoperative Diagnosis: 4-part plus right intertrochanteric hip fracture. Postoperative Diagnosis: 4-part plus right intertrochanteric hip fracture. Procedure Performed: Intramedullary rodding with short Affixus nail, 9 mm x . Complications: None. Disposition: To recovery room, stable. Operative Report In Detail: The patient was taken to the operative suite, placed in supine position, induced with anesthesia. Right hip was prepped and draped in sterile fashion. Reduction maneuvers were performed followed by creation of incision in distal tip of the greater trochanter. A curved ti p guidewire was passed followed by a single stage reaming, nail was then passed with a lag screw passed under biplanar radiography. It was clamped for compaction of the fracture. There was an antirotation device head and neck construct was unstable. It was virtually anatomicall y reduced. A 32 distal interlock screw was then placed. The patient tolerated the procedure well, w as being reversed from anesthesia at the time of dictation. BO/HAYL Voice ID: [id number] Report ID: [id number]
[2021-10-05] MEDS: HYDROCODONE/APAP 5/325 MG TAB PO PRN ×3 (06:48→20:48)
[2021-10-05] MEDS ORDERED: POTASSIUM CL SA 10 MEQ TAB PO ONE (09:00)
[2021-10-05] MEDS: MORPHINE 2 MG/ML SYR IV PRN ×2 (10:22→18:39)
[2021-10-05] MEDS: NACHLORIDE 0.45% 1,000 ML IV SCH ×2 (10:34→20:00)
--- NOTE | 2021-10-05 12:18 | P.PN ---
Subjective Date of Service: 10/05/21 Chief Complaint: Fall She has no new complaint. Status post right hip ORIF yesterday. PT assessments done today. Physical Examination - Vital Signs Temperature: 97.3 F Blood Pressure: 137/60 Pulse: 89 Respirations: 16 Pulse Ox (%): 96 Assessment And Plan - Current Problems (Diagnosis) (1) Intertrochanteric fracture of right femur Current Visit: Yes Status: Acute Qualifiers: Encounter type: initial encounter Fracture type: closed Fracture alignment: displaced Qualified Code(s): S72.141A - Displaced intertrochanteric fracture of right femur, initial encounter for closed fracture (2) Essential hypertension Current Visit: Yes Status: Acute (3) Hyponatremia Current Visit: Yes Status: Acute - Plan Physical Exam General: Alert, In no apparent distress. Neck: Supple, JVD not distended Respiratory: Clear to auscultation bilaterally, Normal air movement Cardiovascular: No edema, Regular rate/rhythm, Normal S1 S2 Gastrointestinal: Normal bowel sounds, Soft and benign, Non-distended, No tenderness Musculoskeletal: No swelling, No erythema. Integumentary: No rashes, No cyanosis Neurological: Normal speech, Normal strength at 5/5 x4 extr. Plan Status post ORIF. PT assessment done today. Patient was transferred with minimum to moderate assistance. Pain management as needed. Start Xarelto for DVT prophylaxis. Continue home medications for hypertension. Monitor H&H. Disposition: Home health for PT versus rehab.
--- NOTE | 2021-10-05 12:57 | RAD REPORT ---
EXAM DESCRIPTION: - Hip in OR Right 1 View - 10/04/2021 7:14 pm FINDINGS: There 28 portable C-arm views obtained during fluoroscopic assisted placement of proximal femur fracture hardware. Images show stepwise placement of the hardware. No suspicious or unexpected finding. Fluoro time was 3.5 minutes. Cumulative dose was 46.5 mGy.
[2021-10-06 03:48] LABS: Hematocrit 21.2 % (36.0-45.0)
[2021-10-06 04:05] LABS: Potassium 3.4 mmol/L (3.5-5.1)
[2021-10-06] MEDS: HYDROCODONE/APAP 5/325 MG TAB PO PRN ×3 (06:45→22:32)
[2021-10-06] MEDS: NACHLORIDE 0.45% 1,000 ML IV SCH (08:30)
[2021-10-06] MEDS ORDERED: POTASSIUM 25 MEQ EFFERV TAB PO ONE (09:00)
[2021-10-06] MEDS: ASPIRIN 325 MG TAB PO SCH ×2 (11:55→21:20)
--- NOTE | 2021-10-06 12:55 | P.DS ---
Admission Date: 10/03/21 Discharge Date: 10/07/21 Disposition: [facility] CARE Discharge Condition: FAIR Reason for Admission: Fall - Problems (1) Intertrochanteric fracture of right femur Status: Acute Qualifiers: Encounter type: initial encounter Fracture type: closed Fracture alignment: displaced Qualified Code(s): S72.141A - Displaced intertrochanteric fracture of right femur, initial encounter for closed fracture (2) Essential hypertension Status: Acute (3) Hyponatremia Status: Acute Brief History of Present Illness: 65-year-old man with a history of hypertension, visiting here from [place] had a mechanical fall at home and developed pain in the right hip. Imaging done in the emergency department demonstrated right femoral intertrochanteric fracture. Orthopedic surgeon Dr. Mayer contacted who plans to perform ORIF. Patient is admitted to the hospitalist service. She currently has no complaint. She denies any palpitation or shortness of breath or lightheadedness or confusion prior to the fall. Hospital Course: Patient admitted to the medical floor. Orthopedic consulted. Patient seen by Dr. Mayer who performed ORIF with intramedullary nani fixation. Patient monitored as inpatient after surgery. Her hemoglobin dropped from 11-7. Patient was transfused 1 unit PRBC. He was seen and evaluated by physical therapy. Patient tolerated therapy and was able to ambulate 20 feet. Patient is out of town and prefers to go home with therapy. Vitals are stable patient is clinically stable for discharge. Vital Signs/Physical Exam: Temp Pulse Resp BP Pulse Ox 97.1 F 81 16 138/63 96 10/06/21 08:00 10/06/21 08:00 10/06/21 08:00 10/06/21 08:00 10/06/21 08:00 General: Alert, In no apparent distress, Oriented x3 HEENT: Mucous membr. moist/pink Neck: JVD not distended Respiratory: Clear to auscultation bilaterally, Normal air movement Cardiovascular: No edema, Regular rate/rhythm, Normal S1 S2 Gastrointestinal: Soft and benign, Non-distended Musculoskeletal: No erythema Integumentary: No rashes, No cyanosis Neurological: Normal strength at 5/5 x4 extr Laboratory Data at Discharge: WBC 7.6 K/uL (4.3-10.9) D 10/05/21 03:51 Hgb 7.2 g/dL (12.0-15.0) L 10/06/21 03:31 Hct 21.2 % (36.0-45.0) L 10/06/21 03:31 Plt Count 159 K/uL (152-406) 10/05/21 03:51 PT 12.9 SECONDS (9.5-12.5) H 10/04/21 06:26 INR 1.17 10/04/21 06:26 Sodium 142 mmol/L (136-145) 10/06/21 03:31 Potassium 3.4 mmol/L (3.5-5.1) L 10/06/21 03:31 BUN 9 mg/dL (7-18) 10/06/21 03:31 Creatinine 0.50 mg/dL (0.55-1.3) L 10/06/21 03:31 Glucose 119 mg/dL (74-106) H 10/06/21 03:31 Phosphorus 2.8 mg/dL (2.5-4.9) 10/04/21 06:26 Magnesium 1.9 mg/dL (1.8-2.4) 10/04/21 06:26 Total Bilirubin 0.9 mg/dL (0.2-1.0) 10/03/21 12:15 AST 33 U/L (15-37) 10/03/21 12:15 ALT 42 U/L (12-78) 10/03/21 12:15 Alkaline Phosphatase 49 U/L (45-117) 10/03/21 12:15 Home Medications: Calcium Carbonate/Vitamin D3 [Calcium 600 mg-Vit D3 10Mcg Tb] 1 tab PO DAILY 10/03/21 Fluoxetine HCl [Prozac] 20 mg PO DAILY 10/03/21 Focus Factor 2 tab PO DAILY 10/03/21 Hydroxyzine HCl [Atarax] 1 tab PO BID PRN 10/03/21 Liver Cleanse 1 tab PO DAILY 10/03/21 Metoprolol Succinate [Toprol Xl] 25 mg PO DAILY 10/03/21 118/Iron/Folate 6/Dha [[facility] Softgel] 1 each PO DAILY 10/03/21 Vit Bcomp,C/Folic Acid/Zinc [Shanika B Strong with C & Zinc Tb] 1 tab PO DAILY 10/03/21 hydroCHLOROthiazide [Hydrochlorothiazide] 25 mg PO DAILY 10/03/21 Aspirin Tab [Mallory Aspirin*] 325 mg PO BID #60 tab 10/06/21 Hydrocodone 5/APAP 325 [[place] 5/325*] 1 tab PO Q6HP PRN #20 tab 10/07/21 New Medications: Hydrocodone 5/APAP 325 [[place] 5/325*] 1 tab PO Q6HP PRN #20 tab PRN Reason: Pain Scale 5-7 (Moderate) Aspirin Tab [Mallory Aspirin*] 325 mg PO BID #60 tab Diet: AHA Followup: NONE,NONE [Primary Care Provider] - 1-2 Weeks Time spent managing pt's care (in minutes): 36
--- NOTE | 2021-10-06 17:55 | P.PN ---
Subjective Date of Service: 10/06/21 Chief Complaint: Fall She has no new complaint. Status post right hip ORIF day 2. Physical Examination - Vital Signs Temperature: 97.7 F Blood Pressure: 167/71 Pulse: 73 Respirations: 14 Pulse Ox (%): 98 Assessment And Plan - Current Problems (Diagnosis) (1) Intertrochanteric fracture of right femur Current Visit: Yes Status: Acute Qualifiers: Encounter type: initial encounter Fracture type: closed Fracture alignment: displaced Qualified Code(s): S72.141A - Displaced intertrochanteric fracture of right femur, initial encounter for closed fracture (2) Essential hypertension Current Visit: Yes Status: Acute (3) Hyponatremia Current Visit: Yes Status: Acute - Plan Physical Exam General: Alert, In no apparent distress. Neck: Supple, JVD not distended Respiratory: Clear to auscultation bilaterally, Normal air movement Cardiovascular: No edema, Regular rate/rhythm, Normal S1 S2 Gastrointestinal: Normal bowel sounds, Soft and benign, Non-distended, No tenderness Musculoskeletal: No swelling, No erythema. Integumentary: No rashes, No cyanosis Neurological: Normal speech, Normal strength at 5/5 x4 extr. Plan Status post ORIF. Patient was able to ambulate with PT today. Hemoglobin dropped to 7.2. Transfuse 1 unit PRBC Pain management as needed. Aspirin for DVT prophylaxis per Ortho. Continue home medications for hypertension. Monitor H&H. Disposition: Patient prefers home with home health. Possible discharge in a.m.
[2021-10-06 19:17] LABS: Hematocrit 27.3 % (36.0-45.0)
[2021-10-06 21:03] VITALS: O2SAT 95
[2021-10-07 01:36] VITALS: TEMP 97.1
[2021-10-07 03:58] LABS: Hematocrit 26.4 % (36.0-45.0)
[2021-10-07 05:16] LABS: Potassium 3.7 mmol/L (3.5-5.1)
[2021-10-07] MEDS: HYDROCODONE/APAP 5/325 MG TAB PO PRN (05:27)
[2021-10-07 08:18] VITALS: BP 165/95
[2021-10-07] MEDS ORDERED: POTASSIUM CL SA 10 MEQ TAB PO ONE (09:00)
== END 2021-10-07 10:00 | disposition home health service (06) | DRG 481 ==
LOC: ER 09:59 → ERHOLD 13:35 → 2ND 17:05
PROVIDERS: ADMIT Internal Medicine; ATTEND Internal Medicine
PROC: 0QS606Z Reposition Right Upper Femur with Intramedullary Internal Fixation Device, Open Approach (ICD-10-PCS; principal; 2021-10-04 17:00)
PROC: 30233N1 Transfusion of Nonautologous Red Blood Cells into Peripheral Vein, Percutaneous Approach (ICD-10-PCS; 2021-10-06)
DX: S72.141A Displaced intertrochanteric fracture of right femur, initial encounter for closed fracture (principal); E87.1 Hypo-osmolality and hyponatremia; D62 Acute posthemorrhagic anemia; I10 Essential (primary) hypertension; W18.30XA Fall on same level, unspecified, initial encounter; Y92.009 Unspecified place in unspecified non-institutional (private) residence as the place of occurrence of the external cause; Z20.822 Contact with and (suspected) exposure to COVID-19
CPT/HCPCS: 36415; 36430; 51702; 70450; 71045; 71260; 72125; 72170; 74177; 80048; 80076; 81003; 81015; 82550; 82565; 83735; 83880; 84100; 84484; 85014; 85018; 85025; 85610; 86850; 86900; 86901; 87811; 93005; 94760; 96365; 96375; 97110; 97116; 97161; 97530; 99285; J0690; J1100; J1170; J2175; J2270; J2370; J2405; J2704; J3010; J3475; J3480; J7042; J7120; P9016; Q9967